=== PATIENT | female | born 1965 | race African-American/Black ===

== ENCOUNTER 2016-09-23 20:16 | Emergency (ER) | payer OTHER ==
[2016-09-23 20:26] VITALS: BP 126/77; PULSE 90; TEMP 98.2; BMI 34.5
[2016-09-23] MEDS ORDERED: ALBUTEROL SO4 0.083% IH SOL 2.5 MG/3 ML VIAL.NEB. NEB ONE ×2 (22:09→22:11)
--- NOTE | 2016-09-23 22:09 | PDOC ---
History of Present Illness - General Chief Complaint: Respiratory Stated Complaint: DIFF BREATHING Time Seen by Provider: 09/23/16 20:21 - History of Present Illness Initial Comments: 09/23/16 22:09 CHIEF COMPLAINT: Cough HISTORY OF PRESENT ILLNESS: This is a 51-year-old female with a history of hypertension and hyperlipidemia who presents for evaluation of 2 days of dry cough, wheezing, shortness of breath, and chest pain with coughing. She denies any lower extremity edema, orthopnea, or PND. Patient has no personal history of hypercoagulability. She denies recent travel, trauma/surgery/mobility, hemoptysis, estrogen use, cigarette smoking. Vital signs on arrival are notable for pulse of 90. PCP is Dr. Lewis REVIEW OF SYSTEMS: GENERAL/CONSTITUTIONAL: No fever or chills. No weakness. No weight change. HEAD, EYES, EARS, NOSE AND THROAT: No change in vision. No ear pain or discharge. No sore throat. CARDIOVASCULAR: Chest pain with coughing only. No palpitations. RESPIRATORY: See HPI. GASTROINTESTINAL: No nausea, vomiting, diarrhea or constipation. GENITOURINARY: No dysuria, frequency, or change in urination. MUSCULOSKELETAL: No joint or muscle swelling or pain. No neck or back pain. SKIN: No rash or easy bruising. NEUROLOGIC: No headache, vertigo, loss of consciousness, or loss of sensation. PSYCHIATRIC: No depression or anxiety. ENDOCRINE: No increased thirst. No abnormal weight change. HEMATOLOGIC/LYMPHATIC: No anemia, easy bleeding, or history of blood clots. ALLERGIC/IMMUNOLOGIC: No hives or skin allergy. No latex allergy. PHYSICAL EXAM: GENERAL: The patient is awake, alert, and fully oriented, in no acute distress. HEAD: Normal with no signs of trauma. ENT: Pupils equal, round and reactive to light, extraocular movements intact, sclera anicteric, conjunctiva clear. Neck supple. LUNGS: Paroxysmal coughing. Scant end-expiratory wheeze. Good air movement, no adventitious lung sounds,. CV: RRR, S1/S2, no MRG. Cap refill < 2 sec. ABDOMEN: Soft, non-distended, non-tender. EXTREMITIES: Normal range of motion, no edema. No calf tenderness. NEUROLOGICAL: Normal speech, normal gait. CN II-XII grossly intact. PSYCH: Normal mood, normal affect. SKIN: Warm, dry, normal turgor, no rashes or lesions noted. Past History - Past Medical History Allergies/Adverse Reactions: Allergies Allergy/AdvReac Type Severity Reaction Status Date / Time amoxicillin [Amoxicillin] Allergy Swelling Verified 09/23/16 20:23 Home Medications: Ambulatory Orders Valsartan [Diovan] 40 mg PO DAILY 11/23/15 Ibuprofen [Motrin -] 600 mg PO QID #40 tablet MDD 4 02/15/16 Tizanidine HCl [Zanaflex] 4 mg PO QID #40 tablet MDD 4 02/15/16 Albuterol Sulfate Inhaler - [Ventolin HFA Inhaler -] 1 - 2 inh PO QID #1 inhaler 09/23/16 Azithromycin [Zithromax 250mg Tablets -] 250 mg PO UTDICT #6 tab 09/23/16 Promethazine/Phenyleph/Codeine [Phenergan VC+Codeine Syrup] 5 ml PO QID PRN # 118 ml MDD 20 mls 09/23/16 Cardiac Disorders: Yes (MURMUR) HTN: Yes Hypercholesterolemia: Yes - Surgical History Abdominal Surgery: Yes (FIBROID REMOVAL) - Immunization History Td Vaccination: Yes TDAP Vaccination: Yes Immunization Up to Date: Yes - Psycho/Social/Smoking Cessation Hx Anxiety: No Suicidal Ideation: No Smoking Status: No Smoking History: Never smoked Years of Tobacco Use: 0 Have you smoked in the past 12 months: No Number of Cigarettes Smoked Daily: 0 Cigars Per Day: 0 Information on smoking cessation initiated: No Hx Alcohol Use: No Drug/Substance Use Hx: No Substance Use Type: None *Physical Exam - Vital Signs Last Vital Signs Temp Pulse Resp BP Pulse Ox 98.2 F 90 18 126/77 99 09/23/16 20:23 09/23/16 20:23 09/23/16 20:23 09/23/16 20:23 09/23/16 20:23 ED Treatment Course - ADDITIONAL ORDERS Additional order review: 09/23/16 20:00 Influenza Types A,B Antigen (KATIE) - Final Nasopharyngeal Swab - Final - RADIOLOGY Radiology Studies Ordered: Category Date Time Status CHEST PA & LAT [RAD] Stat Radiology 09/23/16 20:21 Completed Medical Decision Making - Medical Decision Making 09/23/16 22:23 A/P: 51 year old female with wheezing, paroxysmal cough, and shortness of breath. 1. EKG: NSR at 89 bpm, no ST or T wave changes 2. CXR: No infiltrate Treated with albuterol neb with improvement in symptoms. Will rx azithromycin for bronchitis, albuterol MDI for reactive airway/wheezing, and phenergan/ codeine syrup. Followup instructions and return precautions reviewed. 09/23/16 22:26 *DC/Admit/Observation/Transfer Diagnosis at time of Disposition: Bronchitis - Discharge Dispostion Disposition: HOME Condition at time of disposition: Stable Admit: No - Prescriptions Prescriptions: Promethazine/Phenyleph/Codeine [Phenergan VC+Codeine Syrup] 5 ml PO QID PRN # 118 ml MDD 20 mls PRN Reason: cough Albuterol Sulfate Inhaler - [Ventolin HFA Inhaler -] 1 - 2 inh PO QID #1 inhaler Azithromycin [Zithromax 250mg Tablets -] 250 mg PO UTDICT #6 tab - Referrals Referrals: Tsering Lewis MD [Primary Care Provider] - 3 days - Patient Instructions Printed Discharge Instructions: DI for Acute Bronchitis Additional Instructions: -Take azithromycin as prescribed for bronchitis -Use the albuterol inhaler and cough syrup (when you are not driving or working ) to help relieve your cough -Follow up with Dr. Lewis later this week -Return here for difficulty breathing or any other concerning symptoms - Post Discharge Activity Work/School Note: Back to Work
--- NOTE | 2016-09-24 16:09 | EKG ---
Test Reason : Blood Pressure : / mmHG Vent. Rate : 089 BPM Atrial Rate : 089 BPM P-R Int : 156 ms QRS Dur : 084 ms QT Int : 372 ms P-R-T Axes : 052 021 030 degrees QTc Int : 452 ms NORMAL SINUS RHYTHM CANNOT RULE OUT ANTERIOR INFARCT , AGE UNDETERMINED ABNORMAL ECG WHEN COMPARED WITH ECG OF 15-FEB-2016 10:44, NO SIGNIFICANT CHANGE WAS FOUND Confirmed by SENG MAYO MD ([id number]) on 09/24/2016 4:08:47 PM Referred By: Confirmed By:SENG MAYO MD
== END 2016-09-23 22:36 | disposition home or self-care (01) ==
LOC: JERFT 20:16
PROC: 3E0F7GC Introduction of Other Therapeutic Substance into Respiratory Tract, Via Natural or Artificial Opening (ICD-10-PCS; principal; 2016-09-23)
DX: J40 Bronchitis, not specified as acute or chronic (principal); I10 Essential (primary) hypertension; E78.5 Hyperlipidemia, unspecified; E78.00 Pure hypercholesterolemia, unspecified
CPT/HCPCS: 71020-TC; 87804; 93005; 93010; 99281-25

== ENCOUNTER 2017-12-29 11:54 | Day surgery (SDC) | payer OTHER ==
[2017-12-29 12:12] VITALS: BMI 34.5
[2017-12-29 13:05] VITALS: PULSE 80
[2017-12-29 13:29] VITALS: BP 116/69
[2017-12-29 15:34] VITALS: TEMP 98
== END 2017-12-29 14:40 | disposition home or self-care (01) ==
LOC: JASU-ENDO 11:54
PROVIDERS: ATTEND Internal Medicine Gastroenterology
PROC: 0DJD8ZZ Inspection of Lower Intestinal Tract, Via Natural or Artificial Opening Endoscopic (ICD-10-PCS; principal; 2017-12-29 11:30)
DX: Z51.11 Encounter for antineoplastic chemotherapy (principal)

== ENCOUNTER 2018-08-03 10:50 | Emergency (ER) | payer OTHER ==
[2018-08-03 10:57] VITALS: BP 142/90; TEMP 98.3; BMI 34.3
[2018-08-03] MEDS ORDERED: ACETAMINOPHEN 325 MG TABLET (FP) PO ONE (11:32)
[2018-08-03] MEDS ORDERED: guaiFENesin/CODEINE 10 ML UNIT-DOSE CUPS PO ONE (11:32)
--- NOTE | 2018-08-03 11:32 | PDOC ---
History of Present Illness - General Chief Complaint: Cold Symptoms Stated Complaint: Cold Symptoms Time Seen by Provider: 08/03/18 11:18 History Source: Patient Exam Limitations: No Limitations - History of Present Illness Initial Comments: CHIEF COMPLAINT: 53 y/o afebrile, tachycardic female with PMH HTN c/o body aches, cough, runny nose and SOB since last night. HISTORY OF PRESENT ILLNESS: The patient states her co-worker has the flu and she did not receive the flu shot. She denies LOVE, neck pain, changes in vision/ hearing, earache, sore throat, CP, n/v/d, abd pain, back pain, hemoptysis, calf pain, hematuria, dysuria, estrogen use, smoking history. Vital signs on arrival are notable for pulse of 116. REVIEW OF SYSTEMS: GENERAL/CONSTITUTIONAL: +chills. +body aches. No weakness. No weight change. HEAD, EYES, EARS, NOSE AND THROAT: +runny nose. No change in vision. No ear pain or discharge. No sore throat. CARDIOVASCULAR: +SOB. No chest pain. RESPIRATORY: +dry cough. No wheezing or hemoptysis. GASTROINTESTINAL: No nausea, vomiting, diarrhea, abd pain. GENITOURINARY: No dysuria, frequency, or change in urination. MUSCULOSKELETAL: No joint or muscle swelling or pain. No neck or back pain. SKIN: No rash or easy bruising. NEUROLOGIC: No headache, vertigo, loss of consciousness, or loss of sensation. PHYSICAL EXAM: GENERAL: The patient is awake, alert, and fully oriented, in no acute distress. She is non toxic but ill appearing with persistent dry cough. HEAD: Normal with no signs of trauma. ENT: Pupils equal, round and reactive to light, extraocular movements intact, sclera anicteric, conjunctiva clear. Neck supple. LUNGS: Clear to auscultation bilaterally. Normal excursion. No respiratory distress or use of accessory muscles. CV: Rapid rate/Regular rhythm, S1/S2, no MRG. Cap refill < 2 sec. ABDOMEN: Soft, non-distended, non-tender even to deep palpation, no hepatomegaly or splenomegaly, no masses. EXTREMITIES: Normal range of motion, no edema. NEUROLOGICAL: Normal speech, normal gait. CN II-XII grossly intact. SKIN: Warm, dry, normal turgor, no rashes or lesions noted. Past History - Past Medical History Allergies/Adverse Reactions: Allergies Allergy/AdvReac Type Severity Reaction Status Date / Time amoxicillin [Amoxicillin] Allergy Swelling Verified 08/03/18 10:54 Home Medications: Ambulatory Orders Amlodipine Besylate [Norvasc -] 5 mg PO DAILY 12/29/17 Cholecalciferol (Vitamin D3) [Vitamin D -] 400 unit PO DAILY 12/29/17 Albuterol Sulfate Inhaler - [Ventolin HFA Inhaler -] 1 - 2 inh PO Q4H #1 inhaler 08/03/18 Azithromycin [Zithromax 250mg Tablets -] 250 mg PO UTDICT #6 tab 08/03/18 Guaifenesin AC [Robitussin AC -] 5 ml PO TID #75 ml MDD 15 08/03/18 Cardiac Disorders: Yes (MURMUR) COPD: No HTN: Yes Hypercholesterolemia: Yes - Surgical History Abdominal Surgery: Yes (FIBROID REMOVAL) - Immunization History Td Vaccination: Yes TDAP Vaccination: Yes Immunization Up to Date: Yes - Suicide/Smoking/Psychosocial Hx Smoking Status: No Smoking History: Never smoked Years of Tobacco Use: 0 Have you smoked in the past 12 months: No Number of Cigarettes Smoked Daily: 0 Cigars Per Day: 0 Hx Alcohol Use: No Drug/Substance Use Hx: No Substance Use Type: None *Physical Exam - Vital Signs Last Vital Signs Temp Pulse Resp BP Pulse Ox 98.3 F 116 H 20 142/90 100 08/03/18 10:56 08/03/18 10:56 08/03/18 10:56 08/03/18 10:56 08/03/18 10:56 Moderate Sedation - Procedure Monitoring Vital Signs: Procedure Monitoring Vital Signs Temperature 98.3 F 08/03/18 10:56 Pulse Rate 116 H 08/03/18 10:56 Respiratory Rate 20 08/03/18 10:56 Blood Pressure 142/90 08/03/18 10:56 O2 Sat by Pulse Oximetry (%) 100 08/03/18 10:56 Medical Decision Making - Medical Decision Making A/P: 53 y/o afebrile female with flu vs PNA vs URI. Plan is as follows: 1. CXR 2. Influenza 3. PO tylenol 4. Robitussin AC CXR IMPRESSION: No significant change from 09/2016. No obvious infiltrate Influenza - Negative Patient no longer tachycardic with HR of 96bpm. Will treat the patient for bronchitis. She is a never smoker but has had bronchitis in the past. Will send rx for z-pack, albuterol inhaler and robitussin AC for cough. Informed the patient cough medicine may make her drowsy. Suggested she f/u with her doctor in 1-2 weeks for re-eval and return to the ER with any worsening or concerning symptoms. The patient verbalizes understanding of all instructions, has no further questions and is awaiting discharge. *DC/Admit/Observation/Transfer Diagnosis at time of Disposition: Bronchitis - Discharge Dispostion Disposition: HOME Condition at time of disposition: Improved - Prescriptions Prescriptions: Albuterol Sulfate Inhaler - [Ventolin HFA Inhaler -] 1 - 2 inh PO Q4H #1 inhaler Azithromycin [Zithromax 250mg Tablets -] 250 mg PO UTDICT #6 tab Guaifenesin AC [Robitussin AC -] 5 ml PO TID #75 ml MDD 15 - Referrals Referrals: Zaira Person MD [Primary Care Provider] - - Patient Instructions Printed Discharge Instructions: DI for Acute Bronchitis Additional Instructions: Discharge Instructions: -You have bronchitis -3 prescriptions have been sent to your pharmacy; please take as prescribed -The cough medicine can cause drowsiness -Please drink plenty of fluids and get lots of rest -Follow up with your doctor in 1 week for re-evaluation -Return to the ER with any worsening or concerning symptoms - Post Discharge Activity Forms/Work/School Notes: Back to Work
[2018-08-03] MEDS ORDERED: ACETAMINOPHEN 325 MG TABLET (FP) ONE (12:00)
[2018-08-03] MEDS ORDERED: guaiFENesin/CODEINE 5 ML UNIT-DOSE CUPS PO ONE (12:00)
[2018-08-03 12:34] VITALS: PULSE 96
== END 2018-08-03 12:38 | disposition home or self-care (01) ==
LOC: JERFT 10:50
DX: J40 Bronchitis, not specified as acute or chronic (principal); I10 Essential (primary) hypertension; Z88.0 Allergy status to penicillin
CPT/HCPCS: 71046-TC-FY; 87804; 99281-25

== ENCOUNTER → 2021-04-30 | Day surgery (SDC) | payer OTHER | END | disposition home or self-care (01) | LOC: JRADIR 11:49 | PROVIDERS: ATTEND Internal Medicine | PROC: 0G9K3ZX Drainage of Thyroid Gland, Percutaneous Approach, Diagnostic (ICD-10-PCS; principal; 2021-04-30) | DX: E04.1 Nontoxic single thyroid nodule (principal) | CPT/HCPCS: 10005; 76942; 88173; 88305-TC ==

== ENCOUNTER 2021-05-15 10:45 | Emergency (ER) | payer OTHER ==
[2021-05-15 11:13] VITALS: BP 150/96; PULSE 18; TEMP 97.5; BMI 33.9
[2021-05-15] MEDS ORDERED: IBUPROFEN 600 MG TABLET (FP) PO ONE ×2 (11:46→11:47)
== END 2021-05-15 12:02 | disposition home or self-care (01) ==
LOC: JERFT 10:45
DX: S09.90XA Unspecified injury of head, initial encounter (principal); W20.8XXA Other cause of strike by thrown, projected or falling object, initial encounter
CPT/HCPCS: 99283-25